=== PATIENT | female | born 1970 | race Caucasian/White ===

== ENCOUNTER 2016-07-12 08:59 | Emergency (ER) | payer SELFPAY ==
[2016-07-12] MEDS ORDERED: Albuterol/Ipratropium NEB.SOL* Albuterol 2.5 MG/Ipratropium 0.5 MG 3 ML INH ONE (09:54)
[2016-07-12 13:04] VITALS: BP 116/70
--- NOTE | 2016-07-12 14:08 | ED ---
Mk Hay Karl, scribed for Sudeep Sotelo MD on 07/12/16 at 0949 . Asthma - HPI Summary HPI Summary: Pt is a 45 y/o female that presents to the ED c/o weakness and feeling "beat up " after her asthma has been causing her to cough for the past week. Pt stated " I just can't stop coughing" and reported that she has been coughing for the past week with no relief from her inhaler and little relief from a nebulizer treatment. Pt stated that she is having difficulty sleeping because of the cough and reported that she feels weak and "beat up from so much coughing." Pt denied fever. Hx: Asthma. - History of Current Complaint Chief Complaint: EDAsthma Stated Complaint: ASTHMA/DIFF BREATHING Time Seen by Provider: 07/12/16 09:44 Hx Obtained From: Patient Hx Last Menstrual Period: 2 weeks ago Onset/Duration: Gradual Onset, Lasting Days, Still Present Timing: Constant Initial Severity: Moderate Current Severity: Moderate Pain Intensity: 5 - body pain Pain Scale Used: 0-10 Numeric Location/Character: Cough (Nonproductive) Aggravating Symptoms: Nothing Alleviating Symptoms: Nothing - Allergy/Home Medications Allergies/Adverse Reactions: Allergies Allergy/AdvReac Type Severity Reaction Status Date / Time Peanut Oil Allergy Hives/Diff. Verified 07/12/16 09:03 Breathing/I tching PMH/Surg Hx/FS Hx/Imm Hx Endocrine/Hematology History: Denies: Hx Diabetes, Hx Thyroid Disease Cardiovascular History: Denies: Hx Hypertension Respiratory History: Reports: Hx Asthma Denies: Hx Chronic Obstructive Pulmonary Disease (COPD) GI History: Denies: Hx Ulcer - Cancer History Hx Chemotherapy: No Hx Radiation Therapy: No Infectious Disease History: No Infectious Disease History: Denies: Hx Hepatitis, Hx Human Immunodeficiency Virus (HIV), Traveled Outside the [place] in Last 30 Days - Family History Known Family History: Positive: Cardiac Disease - father - [place] , Respiratory Disease, Other - [place] - Social History Alcohol Use: Rare Substance Use Type: Reports: None Smoking Status (MU): Never Smoked Tobacco Review of Systems Negative: Fever Eyes: Negative ENT: Negative Cardiovascular: Negative Positive: Cough Gastrointestinal: Negative Genitourinary: Negative Positive: Myalgia Skin: Negative Positive: Weakness Psychological: Normal All Other Systems Reviewed And Are Negative: Yes Physical Exam Triage Information Reviewed: Yes Vital Signs On Initial Exam: Initial Vitals Temp Pulse Resp BP Pulse Ox 97.4 F 78 16 121/57 99 07/12/16 09:03 07/12/16 09:03 07/12/16 09:03 07/12/16 09:03 07/12/16 09:03 Vital Signs Reviewed: Yes Appearance: Positive: Well-Appearing, No Pain Distress Skin: Positive: Warm, Skin Color Reflects Adequate Perfusion, Dry Head/Face: Positive: Normal Head/Face Inspection Eyes: Positive: Normal ENT: Positive: Normal ENT inspection Neck: Positive: Supple, Nontender Respiratory/Lung Sounds: Positive: Clear to Auscultation, Breath Sounds Present Cardiovascular: Positive: RRR Abdomen Description: Positive: Nontender, Soft Bowel Sounds: Positive: Present Musculoskeletal: Positive: Normal Neurological: Positive: Normal Psychiatric: Positive: Normal, Affect/Mood Appropriate Diagnostics - Vital Signs Vital Signs Temp Pulse Resp BP Pulse Ox 07/12/16 09:35 82 108/38 98 07/12/16 09:34 97.4 F 78 16 121/57 99 07/12/16 09:03 97.4 F 78 16 121/57 99 - Laboratory Lab Statement: Any lab studies that have been ordered have been reviewed, and results considered in the medical decision making process. Asthma Course/Dx - Course Course Of Treatment: Ya Cornejo presented C/O paroxysmal coughing. She has asthma and has been using her inhaler. She tried a neighbors nebulizer which helped (she has her own but no meds). She improved wome here with a neb and there is no sign of superinfection. I will treat her symptomatically. - Diagnoses Provider Diagnoses: Asthma exacerbation Discharge - Discharge Plan Condition: Stable Disposition: HOME Prescriptions: Albuterol 0.5% CONC NEB.ZAIDA* 1 mg .SEE ORDER Q4HR PRN #1 neb.soln PRN Reason: Cough guaiFENesin/CODIEN 100MG-10MG* [Robitussin AC 100Mg-10Mg*] 5 ml PO Q4H PRN #100 udc MDD 20 PRN Reason: Cough Patient Education Materials: Bronchospasm (ED), How to Use a Nebulizer (ED), Moderate and Severe Persistent Asthma (ED) Referrals: No Primary Care Phys,NOPCP [Primary Care Provider] - Additional Instructions: Please follow up with your primary care provider. Return to the emergency room for changing or worsening symptoms. The documentation as recorded by the Mk garcia Karl accurately reflects the service I personally performed and the decisions made by me, Sudeep Sotelo MD.
== END 2016-07-12 13:02 | disposition home or self-care (01) ==
LOC: ED 08:59
DX: J45.901 Unspecified asthma with (acute) exacerbation (principal)
CPT/HCPCS: 94640; 99283; A9270-GY

== ENCOUNTER 2018-08-13 16:37 | Emergency (ER) | payer BC, OTHER ==
[2018-08-13 16:50] VITALS: BP 129/72
--- NOTE | 2018-08-13 17:08 | UC ---
Skin Complaint HPI - HPI Summary HPI Summary: 47-year-old woman comes in with a chief complaint of rash. Rash started on her right forearm after wearing a tennis elbow brace several days ago. It's itchy red raised. He's tried some Benadryl which does help with the itching. Now she does have more generalized itching and some rash in the left forearm also. No difficulty breathing no shortness of breath. Patient also reports an intermittent rash underneath her nose that spreads along the creases of her cheeks. He gets better and worse. She's tried several treatments and she's having a hard time deciding what makes it better or worse. - History of Current Complaint Chief Complaint: UCSkin Time Seen by Provider: 08/13/18 16:38 Stated Complaint: RASH Hx Last Menstrual Period: 2 weeks ago Pain Intensity: 0 - Allergy/Home Medications Allergies/Adverse Reactions: Allergies Allergy/AdvReac Type Severity Reaction Status Date / Time latex Allergy Rash Verified 08/13/18 16:44 MS Peanut Oil [Peanut Oil] Allergy Hives/Diff. Verified 07/12/16 09:03 Breathing/I tching omeprazole [From Prilosec] Allergy Swelling Verified 08/13/18 16:48 peanut Allergy Hives/Diff. Verified 08/13/18 16:44 Breathing/I tching PMH/Surg Hx/FS Hx/Imm Hx Previously Healthy: Yes Respiratory History: Asthma - Surgical History Surgical History: None - Family History Known Family History: Positive: Cardiac Disease - father - [place] , Respiratory Disease, Other - [place] - Social History Alcohol Use: Occasionally Substance Use Type: None Smoking Status (MU): Never Smoked Tobacco Review of Systems All Other Systems Reviewed And Are Negative: Yes Constitutional: Positive: Negative Skin: Positive: Rash Eyes: Positive: Negative ENT: Positive: Negative Respiratory: Positive: Negative Cardiovascular: Positive: Negative Gastrointestinal: Positive: Negative Motor: Positive: Negative Neurovascular: Positive: Negative Musculoskeletal: Positive: Negative Neurological: Positive: Negative Psychological: Positive: Negative Is Patient Immunocompromised?: No Physical Exam Triage Information Reviewed: Yes Appearance: Well-Appearing, No Pain Distress, Well-Nourished Vital Signs: Initial Vital Signs Temp 98.1 F 08/13/18 16:45 Pulse 81 08/13/18 16:45 Resp 18 08/13/18 16:45 BP 129/72 08/13/18 16:45 Pulse Ox 99 08/13/18 16:45 Vital Signs Reviewed: Yes Eye Exam: Normal Eyes: Positive: Conjunctiva Clear ENT: Positive: Pharynx normal. Negative: Nasal drainage Neck exam: Normal Neck: Positive: Supple Respiratory: Positive: Lungs clear, Normal breath sounds, No respiratory distress Cardiovascular: Positive: RRR Musculoskeletal Exam: Normal Musculoskeletal: Positive: Strength Intact, ROM Intact Neurological Exam: Normal Neurological: Positive: Alert, Muscle Tone Normal Psychological Exam: Normal Psychological: Positive: Age Appropriate Behavior Skin: Positive: Rashes - Under the nose there are TWO 1 cm areas of slightly scaling erythematous rash. The right forearm there is scattered diffuse erythema with raised areas that show evidence of scratching. There is a few more patches of the same rash on the left forearm. Course/Dx - Course Course Of Treatment: The rash under the nose the rash under the nose based on location is most likely either impetigo or seborrheic dermatitis. We discussed treatment with cleaning the area with a dandruff shampoo during regular showering. Also prescribed mupirocin to be used to see if it's helpful. I let her know to not use any steroids on her face. The rash on the forearms appears to be a contact dermatitis. Patient reports she has hyperreactive response to steroids orally. Plan is A log 0.1% topically. If that does not help I did prescribe a Medrol Dosepak at the patient can use if needed. Otherwise follow- up with dermatology. - Diagnoses Provider Diagnosis: Rash Discharge - Sign-Out/Discharge Documenting (check all that apply): Patient Departure All imaging exams completed and their final reports reviewed: No Studies - Discharge Plan Condition: Stable Disposition: HOME Prescriptions: methylPREDNISolone [Medrol Dosepak 4 MG*] 0 mg PO .SEE JOYCE INSTRUCTION #1 joyce Mupirocin 1 applic TOPICAL BID #22 gm Triamcinolone 0.1% CREAM (NF) [Kenalog 0.1% Cream (NF)] 1 applic TOPICAL TID # 30 gm Patient Education Materials: Impetigo (ED), Contact Dermatitis (ED), Seborrheic Dermatitis (DC) Referrals: Jasson Whatley MD [Medical Doctor] - Melinda Galarza NP [Primary Care Provider] - Emma Ellis [Medical Doctor] - Additional Instructions: FOLLOW UP WITH DERMATOLOGY IF NOT COMPLETELY IMPROVED. GET RECHECKED FOR ANY WORSENING OF YOUR CONDITION OR QUESTIONS OR CONCERNS. - Billing Disposition and Condition Condition: STABLE Disposition: Home
== END 2018-08-13 17:15 | disposition home or self-care (01) ==
LOC: UCEAST 16:37
DX: R21 Rash and other nonspecific skin eruption (principal); J45.909 Unspecified asthma, uncomplicated; Z91.040 Latex allergy status; Z91.010 Allergy to peanuts; Z88.8 Allergy status to other drugs, medicaments and biological substances
CPT/HCPCS: 99212; G0463

== ENCOUNTER 2018-08-24 09:28 | Emergency (ER) | payer SELFPAY ==
--- NOTE | 2018-08-24 09:39 | UC ---
Skin Complaint HPI - HPI Summary HPI Summary: Patient Chief Complaint: rash, continuing, spreading. Now on belt line front and back; around both elbows; and in both groin areas. Intensely pruritic. Course (aggravating, relieving, current condition, severity): itching improved on Medrol dosepak, but patient stopped medication because she was concerned about taking steroid. MD note: vital signs stable. Vital signs beyond normal range reviewed. Nurses Note Reviewed. "Pt states was here 1.5 weeks ago for the same rash. States got new bands for tennis elbow - has dealt with issue before, but not as bad. Was given a course of methylprednisone and kenlog cream, has just gotten progressively worse, and now in other parts of body. " Visit History Reviewed. Medications & Allergies Reviewed. Previous note by Dr. Vasquez from August 13 2018: Course Of Treatment: The rash under the nose the rash under the nose based on location is most likely either impetigo or seborrheic dermatitis. We discussed treatment with cleaning the area with a dandruff shampoo during regular showering. Also prescribed mupirocin to be used to see if it's helpful. I let her know to not use any steroids on her face. The rash on the forearms appears to be a contact dermatitis. Patient reports she has hyperreactive response to steroids orally. Plan is A log 0.1% topically. If that does not help I did prescribe a Medrol Dosepak at the patient can use if needed. Otherwise follow- up with dermatology. - History of Current Complaint Time Seen by Provider: 08/24/18 09:33 Stated Complaint: RASH Hx Last Menstrual Period: 2 weeks ago - Allergy/Home Medications Allergies/Adverse Reactions: Allergies Allergy/AdvReac Type Severity Reaction Status Date / Time latex Allergy Rash Verified 08/13/18 16:44 omeprazole [From Prilosec] Allergy Swelling Verified 08/13/18 16:48 peanut Allergy Hives/Diff. Verified 08/13/18 16:44 Breathing/I tching peanut oil Allergy Hives/Diff. Verified 08/24/18 09:38 Breathing/I tching Home Medications: Home Medications Mupirocin 1 applic TOPICAL BID PRN 08/24/18 [History Confirmed 08/24/18] diphenhydrAMINE HCl [Benadryl Allergy 25 MG CAP] 25 mg PO ONCE 08/24/18 [ History Confirmed 08/24/18] PMH/Surg Hx/FS Hx/Imm Hx - Additional Past Medical History Additional PMH: PMH reviewed. Asthma. Antopy. Family History: Positive history of: allergies. -CARDIOVASCULAR DISEASE -Denies hypertension, diabetes, cancer. 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 Negative: Sore Throat Respiratory: Positive: Negative. Negative: Cough Cardiovascular: Positive: Negative Gastrointestinal: Positive: Negative Genitourinary: Positive: Negative Is Patient Immunocompromised?: No - Comments Additional Review of Systems Comments: A 12 point review of systems was completed and was significantly positive for: rash . The remainder of the review was negative except as stated above in the ROS or HPI. Physical Exam - Summary Physical Exam Summary: Appearance: The patient is well-appearing, is in no pain or distress, and is well-nourished. Eyes: Conjunctiva are clear. Pupils are equal and reactive to light and accommodation. Extra ocular muscle movement is intact. ENT: The hearing is grossly normal, the pharynx is normal, and the TMs are normal. There is no muffled or hoarse voice. No stridor. Neck: The neck is supple and there is no lymphadenopathy. Respiratory: The chest is nontender to palpation and without crepitus. The lungs are clear, there are normal breath sounds, and there is no respiratory distress. No wheezes, rales or rhonchi. Cardiovascular: Heart sounds reveal a regular rate and rhythm. There are no clicks, rubs or murmurs. There are no carotid bruits or thrills. Circulation is grossly intact. Abdomen: The abdomen is soft and nontender. There is no organomegaly. Bowel sounds are present and within normal limits. No point tenderness at McBurneys point. Musculoskeletal: Strength is intact. The patient moves all extremities. Neurological: The patient is alert. Motor and sensory are examination grossly intact. Speech is normal. Psychological: The patient displays age appropriate behavior Skin: ELBOWS: Macular papular excoriated rash scattered around both elbows, right elbow, worse than left. There is also a rash along the belt line on the anterior abdomen and in both lumbar areas. There is a rash in the groin. It appears that this rash may be of 2 types. Hives as well as contact dermatitis. It is clearly pruritic because there are various places where it's excoriated. There is no evidence of skin infection.. Triage Information Reviewed: Yes Vital Signs Reviewed: Yes Course/Dx - Course Course Of Treatment: MEDICATIONS REVIEWED: Medications have been included in the original chart and reviewed. HYPERTENSION STATUS REVIEWED. - Differential Diagnoses - Skin Complaint Differential Diagnoses: Contact Dermatitis, Urticaria - Diagnoses Provider Diagnosis: Contact dermatitis Discharge - Sign-Out/Discharge Documenting (check all that apply): Patient Departure All imaging exams completed and their final reports reviewed: No Studies - Discharge Plan Condition: Stable Disposition: HOME Prescriptions: predniSONE [Prednisone 5 MG Tab.Ds.Pk] 5 mg PO SEE INSTRUCTIONS #20 marissa MDD 3 PILLS Patient Education Materials: Urticaria (ED), Contact Dermatitis (DC) Referrals: Melinda Galarza HEALTH CARE SANITARY TECHNICIAN [Primary Care Provider] - Additional Instructions: WE DISCUSSED: PLEASE SEEK CARE AT THE EMERGENCY DEPARTMENT IF SYMPTOMS WORSEN OR IF NEW SYMPTOMS DEVELOP. FOLLOW UP WITH YOUR PRIMARY CARE PHYSICIAN IF CONDITION CONTINUES BEYOND 3 DAYS WITHOUT IMPROVEMENT. We are open from 7 a.m. to 10 p.m. Call us with any questions or concerns. YOUR DIAGNOSIS IS: rash: contact dermatitis and hives YOUR PRESCRIPTION RECOMMENDATION IS: prednisone 5 mg pills, # 20 pills; 3 pills a day for 3 days, then 2 pills a day for 2 days, then one pill a day for 5 days, then one pill every other day until gone. OTHER INSTRUCTIONS: Aveeno baths; hydrocortisone 1%; calomine; keep skin protected; look for infection. Hypertension Discharge Instructions: Your blood pressure reading today was 122/60, indicating HYPERTENSION. Follow- up with your primary care provider within 4 weeks for blood pressure check and appropriate recommendations and treatment, as needed. - Billing Disposition and Condition Condition: STABLE Disposition: Home
[2018-08-24 09:47] VITALS: BP 122/60
== END 2018-08-24 10:40 | disposition home or self-care (01) ==
LOC: UCEAST 09:28
DX: L25.9 Unspecified contact dermatitis, unspecified cause (principal); Z88.8 Allergy status to other drugs, medicaments and biological substances; Z91.040 Latex allergy status; Z91.010 Allergy to peanuts
CPT/HCPCS: 99212; G0463

== ENCOUNTER 2018-10-22 18:41 | Emergency (ER) | payer SELFPAY ==
--- NOTE | 2018-10-22 19:11 | UC ---
FLU HPI - HPI Summary HPI Summary: 48 yo female presents with cough, wheezing, chest congestion, and fatigue over the last week. She tells me that she has a history of asthma, but has also had PNA in the past and this feels similar. She has been using her inhaler more frequently at home, but states it only helps for a little bit. She is out of her albuterol solutions for her nebulizer and is requesting a refill for these. She has felt chills/warm, but has not taken her temperature. Denies sinus symptoms, sore throat, SOB, chest pain. - History of Current Complaint Chief Complaint: UCRespiratory Stated Complaint: FLU SYMPTOMS Time Seen by Provider: 10/22/18 19:11 Hx Obtained From: Patient Hx Last Menstrual Period: 2 weeks ago Onset/Duration: Gradual Onset Severity Currently: Moderate Severity Initially: Moderate Pain Intensity: 6 Pain Scale Used: 0-10 Numeric - Allergy/Home Medications Allergies/Adverse Reactions: Allergies Allergy/AdvReac Type Severity Reaction Status Date / Time latex Allergy Rash Verified 10/22/18 18:52 omeprazole [From Prilosec] Allergy Swelling Verified 10/22/18 18:52 peanut Allergy Hives/Diff. Verified 10/22/18 18:52 Breathing/I tching peanut oil Allergy Hives/Diff. Verified 10/22/18 18:52 Breathing/I tching Home Medications: Home Medications Acetaminophen [APAP] 650 mg PO 10/22/18 [History] PMH/Surg Hx/FS Hx/Imm Hx Respiratory History: Asthma - Surgical History Surgical History: None - Family History Known Family History: Positive: Cardiac Disease - father - [place] , Respiratory Disease, Other - [place] - Social History Lives: With Family Alcohol Use: Occasionally Substance Use Type: None Smoking Status (MU): Never Smoked Tobacco Review of Systems All Other Systems Reviewed And Are Negative: Yes Constitutional: Positive: Fatigue Skin: Positive: Negative Eyes: Positive: Negative ENT: Positive: Negative Respiratory: Positive: Cough Cardiovascular: Positive: Negative Gastrointestinal: Positive: Negative Neurological: Positive: Negative Psychological: Positive: Negative Physical Exam - Summary Physical Exam Summary: GENERAL: NAD. WDWN. No pain distress. SKIN: No rashes, sores, lesions, or open wounds. HEENT: Head: AT/NC Eyes: Conjunctiva clear without inflammation or discharge. Ears: Hearing grossly normal. TMs intact, no bulging, erythema, or edema. Nose: Nasal mucosa pink and moist. NTTP maxillary and frontal sinus. Throat: Posterior oropharynx without exudates, erythema, or tonsillar enlargement. Uvula midline. NECK: Supple. Nontender. No lymphadenopathy. CHEST: Mild wheezing throughout with coarse crackles at RLL. No accessory muscle use. Breathing comfortably and in no distress. CV: RRR. Without m/r/g. Pulses intact. Cap refill <2seconds NEURO: Alert. PSYCH: Age appropriate behavior. Triage Information Reviewed: Yes Vital Signs: Initial Vital Signs Temp 98.1 F 10/22/18 18:48 Pulse 88 10/22/18 18:48 Resp 18 10/22/18 18:48 BP 122/56 10/22/18 18:48 Pulse Ox 99 10/22/18 18:48 Laboratory Tests 10/22/18 19:10 Influenza A (Rapid) Negative Influenza B (Rapid) Negative Vital Signs Reviewed: Yes Flu Course/Dx - Course Course Of Treatment: Discussed obtaining a CXR and doing a duoneb treatment in the clinic this evening, but pt states she does not have insurance and would prefer to just be treated at this time. Therefore will rx for zpak and refill her albuterol solutions. Strongly encouraged to be rechecked if she does not improve with anbx and will likely benefit from a CXR at that time - pt voiced understanding and agrees with the plan. - Differential Dx/Diagnosis Provider Diagnosis: Cough, Asthma Discharge - Sign-Out/Discharge Documenting (check all that apply): Patient Departure All imaging exams completed and their final reports reviewed: No Studies - Discharge Plan Condition: Stable Disposition: HOME Prescriptions: Albuterol 2.5MG/3ML (0.083%)* [Ventolin 2.5 MG/3 ML NEB.ZAIDA*] 2.5 mg INH Q6H PRN #30 neb.zaida PRN Reason: Wheezing Azithromycin TAB* [Zithromax TAB (Z-JOYCE) 250 mg #6 tabs] 2 tab PO .TODAY, THEN 1 DAILY #1 joyce Patient Education Materials: Acute Bronchitis (ED), Pneumonia (ED) Referrals: Melinda Galarza BEAN SNIPPER [Primary Care Provider] - Additional Instructions: If you develop a fever, shortness of breath, chest pain, new or worsening symptoms - please call your PCP or go to the ED immediately. Your exam had some crackle sounds in your right lung which could indicate pneumonia. We discussed obtaining a chest x-ray today, but decided to wait. Given your history and symptoms will treat you for pneumonia. Please follow up if your symptoms do not improve within 5-7 days. - Billing Disposition and Condition Condition: STABLE Disposition: Home
[2018-10-22 19:22] LABS: Influenza A Molecular NEGATIVE (Negative); Influenza B Molecular NEGATIVE (Negative)
[2018-10-23 09:01] VITALS: BP 122/56
== END 2018-10-22 19:40 | disposition home or self-care (01) ==
LOC: UCEAST 18:41
DX: R05 Cough (principal); J45.909 Unspecified asthma, uncomplicated; R53.83 Other fatigue; Z88.8 Allergy status to other drugs, medicaments and biological substances; Z91.040 Latex allergy status; Z91.010 Allergy to peanuts
CPT/HCPCS: 99212; G0463

== ENCOUNTER 2018-10-24 12:18 | Emergency (ER) | payer SELFPAY ==
--- NOTE | 2018-10-24 12:28 | UC ---
Throat Pain/Nasal Jarvis HPI - HPI Summary HPI Summary: 48 yo female presents with right ear pain and headache. I saw her 2 days ago for a resp complaint - she is feeling better regarding this, but last night developed severe right ear pain. She has a hx of headaches so this is not new, but thinks her ear may be making her headache worse. She denies fever, chills, sore throat. - History of Current Complaint Stated Complaint: HEADACHE, EAR PAIN Time Seen by Provider: 10/24/18 12:27 Hx Obtained From: Patient Hx Last Menstrual Period: 2 weeks ago Onset/Duration: Sudden Onset Severity: Mild Pain Intensity: 3 Pain Scale Used: 0-10 Numeric - Allergies/Home Medications Allergies/Adverse Reactions: Allergies Allergy/AdvReac Type Severity Reaction Status Date / Time latex Allergy Rash Verified 10/24/18 12:32 omeprazole [From Prilosec] Allergy Swelling Verified 10/24/18 12:32 peanut Allergy Hives/Diff. Verified 10/24/18 12:32 Breathing/I tching peanut oil Allergy Hives/Diff. Verified 10/24/18 12:32 Breathing/I tching PMH/Surg Hx/FS Hx/Imm Hx Respiratory History: Asthma - Surgical History Surgical History: None - Family History Known Family History: Positive: Cardiac Disease - father - [place] , Respiratory Disease, Other - [place] - Social History Lives: With Family Alcohol Use: Occasionally Substance Use Type: None Smoking Status (MU): Never Smoked Tobacco Review of Systems All Other Systems Reviewed And Are Negative: Yes Constitutional: Positive: Negative Skin: Positive: Negative Eyes: Positive: Negative ENT: Positive: Ear Ache Respiratory: Positive: Cough Cardiovascular: Positive: Negative Gastrointestinal: Positive: Negative Neurological: Positive: Headache Psychological: Positive: Negative Physical Exam - Summary Physical Exam Summary: GENERAL: NAD. WDWN. No pain distress. SKIN: No rashes, sores, lesions, or open wounds. HEENT: Head: AT/NC Eyes: EOM intact. Conjunctiva clear without inflammation or discharge. Ears: Hearing grossly normal. RIGHT TM with mild erythema and bulging. No canal edema or drainage. Nose: Nasal mucosa pink and moist. NTTP maxillary and frontal sinus. Throat: Posterior oropharynx without exudates, erythema, or tonsillar enlargement. Uvula midline. NECK: Supple. Nontender. No lymphadenopathy. CHEST: CTAB. No r/r/w. No accessory muscle use. Breathing comfortably and in no distress. CV: RRR. Without m/r/g. Pulses intact. Cap refill <2seconds NEURO: Alert. PSYCH: Age appropriate behavior. Triage Information Reviewed: Yes Vital Signs: Vital Signs: Temp Pulse Resp BP Pulse Ox 97.5 F 70 18 111/72 100 10/24/18 12:29 10/24/18 12:29 10/24/18 12:29 10/24/18 12:29 10/24/18 12:29 Vital Signs Reviewed: Yes Throat Pain/Nasal Course/Dx - Course Course Of Treatment: Right otitis media. Will have her stop zpak and start augmentin for otitis media bug coverage. Strongly advised to take a probiotic with the augmentin to reduce risk of c.diff/anbx diarrhea. 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 Does not recall ever being bitten by a tick. - Differential Dx/Diagnosis Provider Diagnosis: Otitis media Discharge - Sign-Out/Discharge Documenting (check all that apply): Patient Departure All imaging exams completed and their final reports reviewed: No Studies - Discharge Plan Condition: Stable Disposition: HOME Prescriptions: Amoxicillin/Clavulanate TAB* [Augmentin TAB 875*] 875 mg PO BID #14 tab Patient Education Materials: Ear Infection (ED) Referrals: No Primary Care Phys,NOPCP [Primary Care Provider] - Additional Instructions: If you develop a fever, shortness of breath, chest pain, new or worsening symptoms - please call your PCP or go to the ED immediately. Please stop taking the z-marissa and start taking the Augmentin. Please take a probiotic over the counter to reduce any loose stools or diarrhea you may have from the antibiotics. - Billing Disposition and Condition Condition: STABLE Disposition: Home
[2018-10-24 12:32] VITALS: BP 111/72
== END 2018-10-24 12:50 | disposition home or self-care (01) ==
LOC: UCEAST 12:18
DX: H66.91 Otitis media, unspecified, right ear (principal); R51 Headache; R05 Cough; J45.909 Unspecified asthma, uncomplicated; Z88.8 Allergy status to other drugs, medicaments and biological substances; Z91.040 Latex allergy status; Z91.010 Allergy to peanuts
CPT/HCPCS: 36415; 86618; 99212; G0463

== ENCOUNTER 2019-02-23 19:15 | Emergency (ER) | payer BC ==
[2019-02-23 19:29] VITALS: BP 104/47
--- NOTE | 2019-02-23 19:34 | UC ---
Abdominal Pain Female HPI - HPI Summary HPI Summary: 48 year old female presents with abdominal pain, vomiting. Patient denies bowel changes, yesterday had poor appetite. Woke this AM with abdominal pain, after eating oatmeal, had projectile vomiting x multiple episodes 9-10 times. Denies fever, + chills. no h/o abdominal surgeries, no PMH, no medications. Pain = severe. - History of Current Complaint Stated Complaint: VOMITING Time Seen by Provider: 02/23/19 19:27 Hx Obtained From: Patient, Family/Golf Caddie - sig other Hx Last Menstrual Period: 2 weeks ago ?: No Onset/Duration: Sudden Onset, Lasting Hours Timing: Constant Severity Initially: Moderate Severity Currently: Severe Pain Scale Used: 0-10 Numeric Location: Discrete At: RLQ Radiates: No Character: Cramping, Sharp Aggravating Factor(s): Nothing Alleviating Factor(s): Nothing Associated Signs and Symptoms: Positive: Decreased Appetite, Nausea, Vomiting. Negative: Diarrhea Allergies/Adverse Reactions: Allergies Allergy/AdvReac Type Severity Reaction Status Date / Time latex Allergy Rash Verified 02/23/19 19:29 omeprazole [From Prilosec] Allergy Swelling Verified 02/23/19 19:29 peanut Allergy Hives/Diff. Verified 02/23/19 19:29 Breathing/I tching peanut oil Allergy Hives/Diff. Verified 02/23/19 19:29 Breathing/I tching PMH/Surg Hx/FS Hx/Imm Hx Previously Healthy: Yes - denies PMH - Surgical History Surgical History: None - Family History Known Family History: Positive: Cardiac Disease - father - [place] , Respiratory Disease, Other - [place], Non-Contributory - Social History Alcohol Use: Occasionally Substance Use Type: None Smoking Status (MU): Never Smoked Tobacco Review of Systems All Other Systems Reviewed And Are Negative: Yes Constitutional: Positive: Chills, Fatigue Gastrointestinal: Positive: Abdominal Pain, Vomiting, Nausea. Negative: Diarrhea Musculoskeletal: Positive: Negative Neurological: Positive: Negative Is Patient Immunocompromised?: No Physical Exam Triage Information Reviewed: Yes Appearance: No Pain Distress, Well-Nourished, Ill-Appearing - moderate Vital Signs Reviewed: Yes Eyes: Positive: Conjunctiva Clear ENT: Positive: Hearing grossly normal Abdomen Description: Positive: No Organomegaly, Soft, Guarding - RLQ, McBurney' s Point Tenderness, Other: - + RLQ tenderness, +. Negative: CVA Tenderness (R) , CVA Tenderness (L), Hepatomegaly, Splenomegaly Musculoskeletal Exam: Normal Psychological Exam: Normal Skin Exam: Normal Abd Pain Female Course/Dx - Course Course Of Treatment: acute abdomen, possible appendicitis. Patient will drive with friend to ER, report called to [facility]. NPO. Discussed ambo, prefers private car - Differential Dx/Diagnosis Differential Diagnosis: Appendicitis, Gall Bladder Disease, Pancreatitis, Renal Colic, Urinary Tract Infection Provider Diagnosis: Acute abdominal pain Discharge ED - Sign-Out/Discharge Documenting (check all that apply): Patient Departure All imaging exams completed and their final reports reviewed: No Studies - Discharge Plan Condition: Guarded Disposition: HOME-RECOMMEND TO ED Patient Education Materials: Acute Abdominal Pain (ED) Referrals: No Primary Care Phys,NOPCP [Primary Care Provider] - Additional Instructions: - DUe to possiblity of appendicitis, you should go to ER immediately. - Billing Disposition and Condition Condition: GUARDED Disposition: Home-Recommend to ED
== END 2019-02-23 19:57 | disposition home health service (06) ==
LOC: UCEAST 19:15
DX: R10.9 Unspecified abdominal pain (principal); Z91.040 Latex allergy status
CPT/HCPCS: 99212; G0463

== ENCOUNTER 2019-02-23 20:17 | Observation (INO) | payer BC ==
[2019-02-23] MEDS ORDERED: NS 0.9% 1000 ML** 2,000 ML IV ONE (20:34)
[2019-02-23 21:03] LABS: ABS Basophils 0.1 10^3/ul (0-0.2); ABS Lymphocytes 1.1 10^3/ul (1.0-4.8); ABS Monocytes 0.5 10^3/ul (0-0.8); ABS Neutrophils 11.4 10^3/ul (1.5-7.7); Eosinophil % 0.2 %; Hematocrit 41 % (35-47); Hemoglobin 14.5 g/dL (12.0-16.0); Lymphocyte % 8.4 %; Mean Corpuscular HGB Conc 35 g/dL (31-36); Mean Corpuscular Hemoglobin 31 pg (27-31); Mean Corpuscular Volume 89 fL (80-97); Mean Platelet Volume 7.5 fL (7.4-10.4); Platelet Count 255 10^3/uL (150-450); Red Blood Count 4.63 10^6 /uL (3.70-4.87); Red Cell Distribution Width 13 % (10-15); White Blood Count 13.2 10^3/uL (3.5-10.8)
[2019-02-23 21:20] LABS: ALT 16 U/L (7-52); AST 20 U/L (13-39); Albumin 4.5 g/dL (3.2-5.2); Albumin/Globulin Ratio 1.8 (1-3); Alkaline Phosphatase 69 U/L (34-104); Anion Gap 7 mmol/L (2-11); BUN/Creatinine Ratio 18.8 (8-20); Blood Urea Nitrogen 15 mg/dL (6-24); C Reactive Protein 4.49 mg/L (<8.01); CO2 Carbon Dioxide 26 mmol/L (22-32); Chloride 101 mmol/L (101-111); EGFR African American 93.4 (>60); EGFR Non-African American 77.2 (>60); Globulin 2.5 g/dL (2-4); Glucose 111 mg/dL (70-100); Potassium 4.1 mmol/L (3.5-5.0); Sodium 134 mmol/L (135-145)
[2019-02-23 21:26] LABS: HCG Pregnancy < 0.60 mIU/mL
--- NOTE | 2019-02-23 21:40 | ED ---
Abdominal Pain/Female - HPI Summary HPI Summary: Patient is a 48 y/o F presenting to ED with complaints of abdominal pain since this morning, 02/23/19. Patient states that pain progressively worsened since onset. Pain was located at the right side of her abdomen but gradually migrated to her RLQ. Pain onset after eating oatmeal. Patient reports multiple episodes of vomiting throughout the day. Nausea and chills are endorsed, no fever reported. She notes Hx of asthma but denies other medical problems. No regular medications reported. She denies Hx of abdominal surgery. Patient is currently on her menstrual cycle. Patient was evaluated at [facility] and was advised to come to [facility] for evaluation of acute appendicitis. On triage, pain is rated 10/10. Home medications and allergies are reviewed. - History of Current Complaint Chief Complaint: EDAbdPain Stated Complaint: ABD PAIN PER PT Time Seen by Provider: 02/23/19 21:38 Hx Obtained From: Patient Hx Last Menstrual Period: 2 weeks ago Onset/Duration: Lasting Hours, Still Present Timing: Hours Severity Currently: Severe Pain Intensity: 10 Pain Scale Used: 0-10 Numeric Location: Discrete At: RLQ Aggravating Factor(s): Nothing Alleviating Factor(s): Nothing Associated Signs and Symptoms: Positive: Nausea, Vomiting, Other: - chills. Negative: Fever Allergies/Adverse Reactions: Allergies Allergy/AdvReac Type Severity Reaction Status Date / Time latex Allergy Rash Verified 02/23/19 19:29 omeprazole [From Prilosec] Allergy Swelling Verified 02/23/19 19:29 peanut Allergy Hives/Diff. Verified 02/23/19 19:29 Breathing/I tching peanut oil Allergy Hives/Diff. Verified 02/23/19 19:29 Breathing/I tching Home Medications: Home Medications NK [No Home Medications Reported] 02/24/19 [History Confirmed 02/24/19] PMH/Surg Hx/FS Hx/Imm Hx Endocrine/Hematology History: Denies: Hx Diabetes, Hx Thyroid Disease Cardiovascular History: Denies: Hx Hypertension Respiratory History: Reports: Hx Asthma Denies: Hx Chronic Obstructive Pulmonary Disease (COPD) GI History: Denies: Hx Ulcer - Cancer History Hx Chemotherapy: No Hx Radiation Therapy: No Infectious Disease History: No Infectious Disease History: Denies: Hx Hepatitis, Hx Human Immunodeficiency Virus (HIV), Traveled Outside the [place] in Last 30 Days - Family History Known Family History: Positive: Cardiac Disease - father - [place] , Respiratory Disease, Other - [place] - Social History Alcohol Use: Occasionally Substance Use Type: Reports: None Smoking Status (MU): Never Smoked Tobacco Review of Systems Positive: Chills. Negative: Fever Positive: Abdominal Pain, Vomiting, Nausea All Other Systems Reviewed And Are Negative: Yes Physical Exam - Summary Physical Exam Summary: Appearance: Well-appearing, Well-nourished, lying in bed Skin: Warm, dry, no obvious rash Eyes: sclera anicteric, no conjunctival pallor ENT: mucous membranes moist, pharynx appears normal Neck: Supple, nontender Respiratory: Clear to auscultation, no signs of respiratory distress Cardiovascular: Normal S1, S2. No murmurs. Normal distal pulses in tibial and radial bilaterally. Abdomen: Focal RLQ tenderness, positive McBurney's point tenderness, rebound and guarding noted as well. Soft, normal active bowel sounds present Musculoskeletal: Normal, Strength/ROM Intact Neurological: A&Ox3, awake and alert, mentation is normal, speech is fluent and appropriate Psychiatric: affect is normal, does not appear anxious or depressed Triage Information Reviewed: Yes Vital Signs On Initial Exam: Initial Vitals Temp Pulse Resp BP Pulse Ox 97.8 F 67 18 124/61 98 02/23/19 20:25 02/23/19 20:25 02/23/19 20:25 02/23/19 20:25 02/23/19 20:25 Vital Signs Reviewed: Yes Diagnostics - Vital Signs Vital Signs Temp Pulse Resp BP Pulse Ox 02/23/19 20:25 97.8 F 67 18 124/61 98 - Laboratory Lab Results: Lab Results 02/23/19 02/23/19 02/23/19 Range/Units 20:53 20:53 20:53 WBC 13.2 H (3.5-10.8) 10^3/uL RBC 4.63 (3.70-4.87) 10^6 /uL Hgb 14.5 (12.0-16.0) g/dL Hct 41 (35-47) % MCV 89 (80-97) fL MCH 31 (27-31) pg MCHC 35 (31-36) g/dL RDW 13 (10-15) % Plt Count 255 (150-450) 10^3/uL MPV 7.5 (7.4-10.4) fL Neut % (Auto) 86.5 % Lymph % (Auto) 8.4 % [place] % (Auto) 3.8 % Eos % (Auto) 0.2 % Baso % (Auto) 1.1 % Absolute Neuts (auto) 11.4 H (1.5-7.7) 10^3/ul Absolute Lymphs (auto) 1.1 (1.0-4.8) 10^3/ul Absolute Monos (auto) 0.5 (0-0.8) 10^3/ul Absolute Eos (auto) 0.0 (0-0.6) 10^3/ul Absolute Basos (auto) 0.1 (0-0.2) 10^3/ul Absolute Nucleated RBC 0.0 10^3/ul Nucleated RBC % 0.0 Sodium 134 L (135-145) mmol/L Potassium 4.1 (3.5-5.0) mmol/L Chloride 101 (101-111) mmol/L Carbon Dioxide 26 (22-32) mmol/L Anion Gap 7 (2-11) mmol/L BUN 15 (6-24) mg/dL Creatinine 0.80 (0.51-0.95) mg/dL Est GFR ( Amer) 93.4 (>60) Est GFR (Non-Af Amer) 77.2 (>60) BUN/Creatinine Ratio 18.8 (8-20) Glucose 111 H (70-100) mg/dL Lactic Acid 1.1 (0.5-2.0) mmol/L Calcium 9.0 (8.6-10.3) mg/dL Total Bilirubin 0.60 (0.2-1.0) mg/dL AST 20 (13-39) U/L ALT 16 (7-52) U/L Alkaline Phosphatase 69 (34-104) U/L C-Reactive Protein 4.49 (<8.01) mg/L Total Protein 7.0 (6.4-8.9) g/dL Albumin 4.5 (3.2-5.2) g/dL Globulin 2.5 (2-4) g/dL Albumin/Globulin Ratio 1.8 (1-3) Lipase 28 (11.0-82.0) U/L Beta HCG, Quant < 0.60 mIU/mL Result Diagrams: 02/23/19 20:53 02/23/19 20:53 Lab Statement: Any lab studies that have been ordered have been reviewed, and results considered in the medical decision making process. - CT CT ABD/PEL CT Interpretation Completed By: Radiologist Summary of CT Findings: IMPRESSION: 1. Dilated appendix with mild thickening of the wall of the appendix raises the. possibility of acute appendicitis. Clinical correlation is advised. 2. Bilateral spondylolysis of L5. 3. Left adnexal cyst. THIS REPORT WAS REVIEWED BY DR. ISBELL. Re-Evaluation - Re-Evaluation First Eval Re-Evaluation Time: 23:23 Change: Improved Comment: She reports improvement in pain after Toradol. Abdominal Pain Fem Course/Dx - Course Course Of Treatment: Patient is a 48 y/o F presenting to ED with complaints of abdominal pain since this morning, 02/23/19. Patient states that pain progressively worsened since onset. Pain was located at the right side of her abdomen but gradually migrated to her RLQ. Pain onset after eating oatmeal. Patient reports multiple episodes of vomiting throughout the day. Nausea and chills are endorsed, no fever reported. She notes Hx of asthma but denies other medical problems. No regular medications reported. She denies Hx of abdominal surgery. On physical exam, patient had focal RLQ tenderness, positive McBurney' s point tenderness, rebound and guarding noted as well. Bloodwork was obtained. Abnormal values include WBC 13.2, absolute neuts 11.4, sodium 134, glucose 111. UA showed 1+ ketones, 2+ blood, 1+ RBC ,and squamous epith cells. During ED course, patient received fluids, Zofran 8 mg IV, Toradol 10 mg IV, and morphine 4 mg IV. 0022 - Patient's CT ABD/PEL was reviewed with Dr. Cifuentes. CT is still pending official report. 0114 - [facility] called with CT ABD/PEL impression. IMPRESSION: 1. Dilated appendix with mild thickening of the wall of the appendix raises the. possibility of acute appendicitis. Clinical correlation is advised. 2. Bilateral spondylolysis of L5. 3. Left adnexal cyst. 0126 - Discussed patient's case with Dr. Cifuentes. Dr. Cifuentes will admit the patient to his services. - Diagnoses Provider Diagnoses: Acute abdominal pain - Provider Notifications Discussed Care Of Patient With: Jayant Mecenas Time Discussed With Above Provider: 00:22 Instructed by Provider To: Other - 0022 - Patient's CT ABD/PEL was reviewed with Dr. Cifuentes. CT is still pending official report. 0114 - [facility] called with CT ABD/PEL impression. 0126 - Discussed patient's case with Dr. Cifuentes. Dr. Cifuentes will admit the patient to his services. Discharge ED - Sign-Out/Discharge Documenting (check all that apply): Patient Departure - admit All imaging exams completed and their final reports reviewed: Yes Patient Received Moderate/Deep Sedation with Procedure: No - Discharge Plan Condition: Fair Disposition: ADMITTED TO [facility] - Billing Disposition and Condition Condition: FAIR Disposition: Admitted to [facility] - Attestation Statements Document Initiated by Nemesio: Yes Documenting Scribe: YAKOV HARVEY Provider For Whom Nemesio is Documenting (Include Credential): VAISHALI ISBELL MD Scrib[place]andon Attestation: YAKOV Hay, scribed for VAISHALI ISBELL MD on 02/24/19 at 0637. Scribe Documentation Reviewed: Yes Provider Attestation: The documentation as recorded by the YAKOV garcia accurately reflects the service I personally performed and the decisions made by me, VAISHALI ISBELL MD Status of Scribe Document: Viewed
[2019-02-23] MEDS ORDERED: Morphine 4 MG/ML VIAL (1 ml) 4 MG/ML VIAL IV PRN (21:45)
[2019-02-23] MEDS ORDERED: Ketorolac INJ* 30 MG/ML 1 ML VIAL IV PUSH ONE (21:45)
[2019-02-23] MEDS ORDERED: Ondansetron INJ* 2 MG/ML VIAL IV ONE (21:45)
[2019-02-23] MEDS ORDERED: Iohexol 300* (CONTRAST) 10 ML SDV IV ONE (23:14)
[2019-02-23 23:46] LABS: Urine Appearance Clear; Urine Bacteria Absent (Absent); Urine Bilirubin Negative (Negative); Urine Blood 2+ (Negative); Urine Color Yellow; Urine Glucose Negative (Negative); Urine Ketones 1+ (Negative); Urine Nitrite Negative (Negative); Urine Protein Negative (Negative); Urine Red Blood Cell 1+(3-5/hpf) (Absent); Urine Specific Gravity 1.012 (1.010-1.030); Urine Squamous Epithelial Cell Present (Absent); Urine Urobilinogen Negative (Negative); Urine White Blood Cell Trace(0-5/hpf) (Absent)
[2019-02-24] MEDS ORDERED: Ondansetron INJ* 2 MG/ML VIAL IV PRN ×2 (01:30→16:12)
[2019-02-24] MEDS ORDERED: ZOSYN 3.375 GM x ONE DOSE over 30 miuntes IVPB ×2 (02:00)
[2019-02-24] MEDS: NS 0.9% 1000 ML** 1,000 ML IV SCH ×2 (02:18→11:19)
[2019-02-24] MEDS ORDERED: Zosyn per Pharmacy* NOTE FOLLOW UP PRN (02:36)
[2019-02-24] MEDS: Morphine 4 MG/ML VIAL (1 ml) 4 MG/ML VIAL IV PRN ×2 (05:43→10:07)
[2019-02-24] MEDS ORDERED: ZOSYN 3.375 GM Q8H per EXTENDED INFUSION IVPB SCH ×2 (06:00)
[2019-02-24 10:20] LABS: ABS Basophils 0.1 10^3/ul (0-0.2); ABS Eosinophils 0.1 10^3/ul (0-0.6); ABS Lymphocytes 1.2 10^3/ul (1.0-4.8); ABS Monocytes 0.6 10^3/ul (0-0.8); ABS Neutrophils 7.6 10^3/ul (1.5-7.7); Hematocrit 37 % (35-47); Hemoglobin 12.8 g/dL (12.0-16.0); Lymphocyte % 12.5 %; Mean Corpuscular HGB Conc 35 g/dL (31-36); Mean Corpuscular Hemoglobin 31 pg (27-31); Mean Corpuscular Volume 90 fL (80-97); Mean Platelet Volume 7.5 fL (7.4-10.4); Platelet Count 202 10^3/uL (150-450); Red Blood Count 4.09 10^6 /uL (3.70-4.87); Red Cell Distribution Width 13 % (10-15); White Blood Count 9.6 10^3/uL (3.5-10.8)
--- NOTE | 2019-02-24 11:08 | HP ---
CC: [facility] DATE OF ADMISSION: 02/25/2016. CHIEF COMPLAINT: Right lower quadrant abdominal pain. HISTORY OF PRESENT ILLNESS: Ms. Ya Cornejo is a healthy, 48-year-old woman who early Sunday morning awoke with fairly severe epigastric discomfort. This was followed by perfuse vomiting after she attempted to eat some breakfast. She had no fever, shakes, or chills and at that time had no diarrhea. Over the course of the next several hours, the pain migrated to the right lower quadrant. Epigastric discomfort resolved. She had no further nausea, but became anorexic. Once again, she had no diarrhea. She has no complaint of no left upper quadrant or left mid abdominal discomfort. She was seen in the urgent care center and then subsequently transferred to the emergency room. On arrival to the emergency room, she was noted to be afebrile with stable vital signs. She had tenderness in the right lower quadrant. Laboratory values included a white blood cell count of 13,000. Electrolytes, BUN and creatinine, as well as lactic acid, C-reactive protein, lipase and a beta HCG were all unremarkable. She underwent a CT scan of the abdomen and pelvis. I did review these images with our radiologists here today. This showed an appendix which was dilated. There was a mild thickening of the wall with a possible appendicolith. There also appeared to be some air in the appendix. There was no significant inflammation surrounding the appendix. Also noted were several areas in the proximal jejunum as well as in the ileum of some perhaps possible thickening of the wall of the intestine with no evidence of obstruction and this was not certain if this may have been possible enteritis versus simple peristalsis. She was admitted last evening and started on IV antibiotics for presumed appendicitis due to her clinical history and findings on physical exam. PAST MEDICAL HISTORY: Unremarkable. PAST SURGICAL HISTORY: Unremarkable. ALLERGIES: She is ALLERGIC TO LATEX, OMEPRAZOLE, PEANUT OIL, AND PEANUTS. She has no known drug allergies. SOCIAL HISTORY: She does not smoke or drink. She is single, but lives with a male partner. 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 REVIEW OF SYSTEMS: Cerebrovascular: No dizziness or visual disturbances. Cardiovascular: No chest pain or shortness of breath. Pulmonary: No wheezing or hemoptysis. GI: As per above. She has no chronic abdominal discomfort. : No urgency or hematuria. She is currently on her menstrual cycle and this not unremarkable for her. PHYSICAL EXAMINATION GENERAL: She is a well-developed, slightly overweight female with normal attention to grooming. She is awake, alert, and conversive in no apparent distress. VITAL SIGNS: Temperature 98, pulse 69, blood pressure 99/49. LUNGS: Clear to auscultation with normal respiratory effort throughout. HEART: Regular rate and rhythm without murmurs, rubs or gallops. ABDOMEN: Soft, nondistended. There are no prior surgical incisions or hernias. She has some slightly increased bowel sounds throughout that are not high pitched or tinkling. She has exquisite tenderness in the right lower quadrant with voluntary guarding. There is no generalized peritoneal irritation. On palpation of the left mid abdomen, the right lower quadrant pain is worsened. There is no left upper or epigastric abdominal discomfort. EXTREMITIES: Show no cyanosis or edema. PSYCHIATRIC: She is awake, alert, and oriented times three. She has normal judgement and insight. IMPRESSION: Right lower quadrant abdominal discomfort. Her symptoms started with severe epigastric discomfort with vomiting with migration of the pain to the right lower quadrant which has persisted. She states her pain is worse today than it was last night when she presented to the emergency room. She had a mild elevation of her white blood cell count. A CT scan with slightly thickened appendiceal wall, but no evidence of abscess, perforation or significant surrounding inflammation. Perhaps incidentally noted was some discrete areas of the small intestine with some thickened wall, but this may have been peristalsis versus possible enteritis. She has had no diarrhea. I had a long discussion with her regarding these findings as well as the laboratory work-up and the CT scan findings. Her pain is worsened today and it is exquisitely tender in the right lower quadrant and I suspect that this is acute appendicitis and I discussed this with her. With this in mind, I do recommend that we proceed with a laparoscopic appendectomy with evaluation of the small intestine as well. There is a possibility this may be a normal appendix, but I am concerned enough about appendicitis that I explained to her that we do not want to miss an appendicitis and have it progress to perforation and further illness, i.e. sepsis. She is understanding of our discussion and after our discussion she agrees with the plan and would like to proceed with surgery. It should be noted that I did discuss nonoperative management of appendicitis with antibiotics; however, not without a complete assured diagnosis of appendicitis, I would not want to treat with ten days to two weeks of antibiotics and observation. PLAN: 1. Laparoscopic appendectomy today. The procedure was discussed with the patient and the risks of, but not limited to bleeding, infection, intra- abdominal abscess formation, injury to peritoneal and retroperitoneal structures , the possibility of an open procedure, abscess, the risks of general anesthesia , hospital stay, and recovery time were also discussed. 2. She will be kept NPO and continued IV fluids. 3. She has been started on IV Zosyn and this will be continued. [id number]/CPS #: [id number] MTDD
[2019-02-24] MEDS ORDERED: Rocuronium* 10 MG/ML VIAL ONE (15:22)
[2019-02-24] MEDS ORDERED: Propofol* 10 MG/ML 20 ML BTL ONE (15:22)
[2019-02-24] MEDS ORDERED: fentaNYL* 50 MCG/ML 2 ML VIAL (100 MCG VIAL) ONE ×2 (15:22→18:32)
[2019-02-24] MEDS ORDERED: Midazolam* 1 MG/ML 5 ML VIAL (5 MG) ONE (15:22)
[2019-02-24] MEDS ORDERED: Bupivacaine 0.5%* 50 ML MDV VIAL ONE (15:24)
[2019-02-24] MEDS ORDERED: Dexamethasone IV* 4 MG/ML 1 ML (4 MG) ONE (15:52)
[2019-02-24] MEDS ORDERED: ceFOXitin(*) 2 GM in NS 0.9% 100 ML* 100 ML IVPB ONE (16:00)
[2019-02-24] MEDS ORDERED: Ondansetron INJ* 2 MG/ML VIAL ONE ×2 (16:08→20:19)
[2019-02-24] MEDS ORDERED: Ketorolac INJ* 30 MG/ML 1 ML VIAL ONE (16:08)
[2019-02-24] MEDS ORDERED: DiMENhydriNATE IV* 50 MG/ML VIAL IV PUSH PRN (16:12)
[2019-02-24] MEDS ORDERED: Naloxone* 0.4 MG/ML 1 ML VIAL IV PRN (16:12)
--- NOTE | 2019-02-24 16:22 | BRIEFOPN ---
Brief Operative/Procedure Note - Operation Details Pre-Op Diagnosis: acute appendicitis Post-Op Diagnosis: same Procedures: laparoscopic appendectomy Surgeon(s)/Proceduralists: Rodrigue. Assist: VICTOR M Kelsey Anesthesia: GET Estimated Blood Loss: < 10 ml Findings: as above Specimen(s)/Culture(s) Description: appendix Complications: none
[2019-02-24] MEDS ORDERED: Sugammadex * 200 MG/2 ML VIAL IV PUSH ONE (16:23)
[2019-02-24] MEDS ORDERED: HYDROmorphone INJ1* 1 MG/ML SYRINGE ONE (18:05)
[2019-02-24] MEDS ORDERED: oxyCODONE/Acetamin 5/325 MG* TAB ONE (18:05)
[2019-02-24] MEDS: HYDROmorphone INJ1* 1 MG/ML SYRINGE IV PRN ×5 (18:06→18:27)
[2019-02-24] MEDS: oxyCODONE/Acetamin 5/325 MG* TAB PO PRN ×2 (18:07→18:26)
[2019-02-24] MEDS: fentaNYL* 50 MCG/ML 2 ML VIAL (100 MCG VIAL) IV PRN ×2 (18:34→18:37)
[2019-02-24 20:59] VITALS: BP 114/63
--- NOTE | 2019-02-24 23:04 | OP ---
DATE OF OPERATION: 02/24/19 - ROOM #334 DATE OF : 74 SURGEON: Beau Husain MD FRONT END LOADER OPERATOR: VICTOR M Zhong PRE-OP DIAGNOSIS: Appendicitis. POST-OP DIAGNOSIS: Appendicitis. OPERATIVE PROCEDURE: Laparoscopic appendectomy. INDICATIONS: Appendicitis. Risks including, but not limited to, bleeding, infection, injury to bowel explained to the patient who seemed to understand, agreed to the procedure, and all questions were answered. DESCRIPTION OF PROCEDURE: The patient was taken to the operating room and placed supine. Preoperative antibiotics had been given. After successful induction of general endotracheal anesthesia, the abdomen was prepped and draped in sterile fashion. A time-out was performed indicating correct patient , correct procedure. A 5-mm trocar was placed in the left lower quadrant under direct visualization of the camera using a bladeless Optiview trocar. Pneumo- peritoneum was achieved to 15 mmHg. Camera was placed in the abdomen. The abdomen was scanned. There was no obvious injury from trocar placement. A 12- mm umbilical and 5-mm suprapubic trocars were placed. The patient was placed in a slight Trendelenburg position, tilted slightly towards ri. An obviously inflamed appendix was easily noted, gently mobilized, isolated at its base and divided with a stapler. The mesoappendix was divided using a staple load, both king loads, 45 mm. It was placed into an Endobag and removed through the umbilical port site. Right lower quadrant was inspected. There was no purulence. EBL was minimal. Hemostasis was intact. Staple lines were intact. No bleeding. The omentum was gently placed over the operative site. The patient was taken out of the Trendelenburg position. The trocars removed after pneumoperitoneum was released from the abdomen. The skin was closed at each site using Monocryl, glues applied to the skin. She tolerated the procedure well. She was extubated and taken to Recovery in stable condition. [id number]/[facility] #: [id number] [facility]
--- NOTE | 2019-04-10 12:36 | DS ---
DISCHARGE SUMMARY: DATE OF ADMISSION: 02/24/19 DATE OF DISCHARGE: 02/24/09 ADMITTING PHYSICIAN: Dr. Mishra. DISCHARGING PHYSICIAN: Dr. Husain. DISCHARGE DIAGNOSIS: Appendicitis. REASON FOR ADMISSION: Appendicitis. ASSESSMENT OF PATIENT CONDITION AT TIME OF DISCHARGE: Stable condition at the time of discharge. PERTINENT PHYSICAL FINDINGS: The patient was admitted with signs and symptoms consistent with appendicitis. At the time of discharge, her abdomen was soft and nontender. Incision was clean, dry, and intact. PERTINENT LABORATORY FINDINGS: Elevated white blood cell count of 13.2 on admission and normal white blood cell count of 9.6 on the day of discharge. PROCEDURE PERFORMED: Laparoscopic appendectomy. TREATMENT RENDERED: She was seen in the emergency room late in the evening of 02/23/19, placed on IV antibiotics, seen by Dr. Mishra and transferred to [facility] for surgical intervention on 02/24/19. She underwent laparoscopic appendectomy and was discharged postoperatively. CONDITION AND DISPOSITION AT DISCHARGE: Condition is stable. Disposition is good with plans for discharge to home. DISCHARGE INSTRUCTIONS: Normal activity as tolerated. Regular diet. Tylenol and Motrin for pain with plans for followup to see me in the office in 1 week. [id number]/CPS #: [id number] TONY
== END 2019-02-24 20:56 | disposition home or self-care (01) ==
LOC: ED 20:17 → SSU 02-24 01:34
PROVIDERS: ADMIT Surgery; ATTEND Surgery
DX: K37 Unspecified appendicitis (principal); R10.9 Unspecified abdominal pain; R11.2 Nausea with vomiting, unspecified; M47.9 Spondylosis, unspecified; N83.8 Other noninflammatory disorders of ovary, fallopian tube and broad ligament; J45.909 Unspecified asthma, uncomplicated
CPT/HCPCS: 36415; 74177; 80053; 81003; 81015; 83605; 83690; 84702; 85025; 86140; 87086; 88304; 96361; 96365; 96375; 99284; A9270-GY; G0378; J0694; J1100; J1170; J1885; J2250; J2270; J2405; J2543; J2704; J3010; J3490; Q9967

== ENCOUNTER 2019-03-09 19:48 | Emergency (ER) | payer BC ==
--- OUTSIDE RECORDS SUMMARY | 2019-03-09 19:58 | XMS REPORT | Continuity of Care Document ---
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 Medicine Problems Description No Information Available Social History Type Date Description Comments Sex Unknown Tobacco Use Start: Unknown Patient has never smoked Smoking Status Reviewed: 03/04/19 Patient has never smoked Allergies, Adverse Reactions, Alerts Active Allergies Reaction Severity Comments Date Latex 03/03/2019 Omeprazole 03/03/2019 Peanut Oil 03/03/2019 Peanut-containing Drug Products 03/03/2019 Inactive Allergies NKDA 03/03/2019 Medications Active Medications SIG Qnty Indications Ordering Provider Date Ibuprofen 200 400-600mg every 6 Unknown 200mg hours as needed Tablets for pain. History Medications No Active Medications Unknown 03/03/2019 - 03/04/2019 Immunizations Description No Information Available Vital Signs Date Vital Result Comment 03/04/2019 11:46am Heart Rate 72 /min BP Systolic 118 mmHg BP Diastolic 80 mmHg Respiratory Rate 16 /min Body Temperature 99.0 F Results Description No Information Available Procedures Date Code Description Status 02/24/2019 52630 Laparoscopy, Surgical, Appendectomy Completed 02/24/2019 07835 Laparoscopy, Surgical, Appendectomy Completed Medical Devices Description No Information Available Encounters Type Date Location Provider Dx Diagnosis Office Visit 02/24/2019 [facility] K35.80 Unspecified acute [facility] appendicitis Assessments Date Code Description Provider 02/24/2019 K35.30 Acute appendicitis with localized VICTOR M Fuller peritonitis, without perforation or gangrene 02/24/2019 K35.30 Acute appendicitis with localized Beau Husain MD peritonitis, without perforation or gangrene 02/24/2019 K35.80 Unspecified acute appendicitis Konrad Mishra MD Plan of Treatment No Information Available Functional Status Description No Information Available Mental Status Description No Information Available Referrals Description No Information Available
[2019-03-09 23:22] LABS: Urine Appearance Clear; Urine Bacteria Absent (Absent); Urine Bilirubin Negative (Negative); Urine Blood 3+ (Negative); Urine Color Yellow; Urine Glucose Negative (Negative); Urine Ketones Negative (Negative); Urine Nitrite Negative (Negative); Urine Protein Negative (Negative); Urine Red Blood Cell Trace(0-2/hpf) (Absent); Urine Squamous Epithelial Cell Present (Absent); Urine Urobilinogen Negative (Negative); Urine White Blood Cell Absent (Absent)
[2019-03-10 00:24] LABS: ABS Eosinophils 0.2 10^3/ul (0-0.6); ABS Lymphocytes 2.2 10^3/ul (1.0-4.8); ABS Monocytes 0.4 10^3/ul (0-0.8); ABS Neutrophils 3.7 10^3/ul (1.5-7.7); Eosinophil % 3.3 %; Hematocrit 36 % (35-47); Hemoglobin 12.5 g/dL (12.0-16.0); Lymphocyte % 33.5 %; Mean Corpuscular HGB Conc 35 g/dL (31-36); Mean Corpuscular Hemoglobin 31 pg (27-31); Mean Corpuscular Volume 91 fL (80-97); Mean Platelet Volume 7.3 fL (7.4-10.4); Platelet Count 267 10^3/uL (150-450); Red Blood Count 3.99 10^6 /uL (3.70-4.87); Red Cell Distribution Width 13 % (10-15); White Blood Count 6.6 10^3/uL (3.5-10.8)
[2019-03-10] MEDS ORDERED: NS 0.9% 1000 ML** 1,000 ML IV ONE (00:36)
[2019-03-10] MEDS ORDERED: Morphine 4 MG/ML VIAL (1 ml) 4 MG/ML VIAL IV ONE (00:36)
[2019-03-10] MEDS ORDERED: Ketorolac INJ* 30 MG/ML 1 ML VIAL IV PUSH ONE (00:36)
[2019-03-10 00:40] LABS: Albumin 4.2 g/dL (3.2-5.2); Albumin/Globulin Ratio 1.6 (1-3); C Reactive Protein 7.69 mg/L (<8.01); Calcium 9.3 mg/dL (8.6-10.3); EGFR African American 83.7 (>60); EGFR Non-African American 69.2 (>60); Globulin 2.6 g/dL (2-4); Potassium 3.8 mmol/L (3.5-5.0); Total Bilirubin 0.4 mg/dL (0.2-1.0); Total Protein 6.8 g/dL (6.4-8.9)
--- NOTE | 2019-03-10 00:41 | ED ---
Abdominal Pain/Female - HPI Summary HPI Summary: The patient is a 48 y/o F presenting to [facility] with a chief complaint of gradually worsening RLQ pain over the last week. She reports she had an appendectomy almost two weeks ago, and she didnt have any complications or pain for the first week after the surgery, but then she developed pain in the surgical area. She had a repeat CT 5 days ago that only showed inflammation of the area likely consistent with the surgery. Since then, she has had increased pain that hasnt been worse than prior to the surgery, a mild fever, chills, bloating that has resolved, and a decreased appetite. 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 Currently, her symptoms are rated 8/10 in severity. Movement aggravates the pain and rest alleviates it. PMHx: persistent ovarian cysts, asthma, headache, migraine. Nonsmoker, rare EtOH, no substance use. Medications reviewed. Allergies noted. - History of Current Complaint Chief Complaint: EDAbdPain Stated Complaint: ABD PAIN AFTER SURG PER PT Time Seen by Provider: 03/10/19 00:28 Hx Obtained From: Patient Hx Last Menstrual Period: 2 weeks ago Onset/Duration: Gradual Onset, Lasting Days - one week, Still Present Timing: Days Severity Initially: Mild Severity Currently: Severe Pain Intensity: 8 Pain Scale Used: 0-10 Numeric Location: Discrete At: RLQ Radiates: No Character: Sharp Aggravating Factor(s): Movement Alleviating Factor(s): Position - rest, lying down Associated Signs and Symptoms: Positive: Fever - mild, Decreased Appetite, Other : - chills, bloating (resolved) Allergies/Adverse Reactions: Allergies Allergy/AdvReac Type Severity Reaction Status Date / Time latex Allergy Rash Verified 03/09/19 19:51 omeprazole [From Prilosec] Allergy Swelling Verified 03/09/19 19:51 peanut Allergy Hives/Diff. Verified 03/09/19 19:51 Breathing/I tching peanut oil Allergy Hives/Diff. Verified 03/09/19 19:51 Breathing/I tching PMH/Surg Hx/FS Hx/Imm Hx Endocrine/Hematology History: Denies: Hx Diabetes, Hx Thyroid Disease Cardiovascular History: Denies: Hx Hypertension Respiratory History: Reports: Hx Asthma Denies: Hx Chronic Obstructive Pulmonary Disease (COPD) GI History: Denies: Hx Ulcer History: Denies: Hx Renal Disease Musculoskeletal History: Reports: Hx Back Problems - Small fracture in back, Other Musculoskeletal History - spondylothesis Sensory History: Reports: Hx Contacts or Glasses - reading glasses Denies: Hx Hearing Aid Opthamlomology History: Reports: Hx Contacts or Glasses - reading glasses Neurological History: Reports: Hx Headaches, Hx Migraine Psychiatric History: Reports: Hx Depression - Cancer History Hx Chemotherapy: No Hx Radiation Therapy: No - Surgical History Surgical History: Yes Surgery Procedure, Year, and Place: APPENDECTOMY Infectious Disease History: Yes Infectious Disease History: Denies: Hx Hepatitis, Hx Human Immunodeficiency Virus (HIV), Traveled Outside the [place] in Last 30 Days - Family History Known Family History: Positive: Cardiac Disease - father - MD , Respiratory Disease, Other - [place], Non-Contributory - Social History Alcohol Use: Rare Hx Substance Use: No Substance Use Type: Reports: None Hx Tobacco Use: No Smoking Status (MU): Never Smoked Tobacco Review of Systems Positive: Fever - mild, Chills Positive: Abdominal Pain - RLQ, Other - decreased appetite, bloating (resolved) All Other Systems Reviewed And Are Negative: Yes Physical Exam - Summary Physical Exam Summary: Appearance: Well-appearing, Well-nourished, lying in bed comfortably Skin: Warm, dry, no obvious rash Eyes: sclera anicteric, no conjunctival pallor ENT: mucous membranes moist, pharynx appears normal Neck: Supple, nontender Respiratory: Clear to auscultation, no signs of respiratory distress Cardiovascular: Normal S1, S2. No murmurs. Normal distal pulses in tibial and radial bilaterally. Abdomen: Soft, RLQ tenderness without peritoneal signs, normal active bowel sounds present Musculoskeletal: Normal, Strength/ROM Intact Neurological: A&Ox3, awake and alert, mentation is normal, speech is fluent and appropriate Psychiatric: affect is normal, does not appear anxious or depressed Triage Information Reviewed: Yes Vital Signs On Initial Exam: Initial Vitals Temp Pulse Resp BP Pulse Ox 98.8 F 102 20 139/84 98 03/09/19 19:49 03/09/19 19:49 03/09/19 19:49 03/09/19 19:49 03/09/19 19:49 Vital Signs Reviewed: Yes Diagnostics - Vital Signs Vital Signs Temp Pulse Resp BP Pulse Ox 03/09/19 23:23 98 F 65 16 115/72 97 03/09/19 19:49 98.8 F 102 20 139/84 98 - Laboratory Lab Results: Lab Results 03/09/19 03/09/19 Range/Units 22:39 23:51 WBC 6.6 (3.5-10.8) 10^3/uL RBC 3.99 (3.70-4.87) 10^6 /uL Hgb 12.5 (12.0-16.0) g/dL Hct 36 (35-47) % MCV 91 (80-97) fL MCH 31 (27-31) pg MCHC 35 (31-36) g/dL RDW 13 (10-15) % Plt Count 267 (150-450) 10^3/uL MPV 7.3 L (7.4-10.4) fL Neut % (Auto) 56.0 % Lymph % (Auto) 33.5 % [place] % (Auto) 6.6 % Eos % (Auto) 3.3 % Baso % (Auto) 0.6 % Absolute Neuts (auto) 3.7 (1.5-7.7) 10^3/ul Absolute Lymphs (auto) 2.2 (1.0-4.8) 10^3/ul Absolute Monos (auto) 0.4 (0-0.8) 10^3/ul Absolute Eos (auto) 0.2 (0-0.6) 10^3/ul Absolute Basos (auto) 0.0 (0-0.2) 10^3/ul Absolute Nucleated RBC 0.0 10^3/ul Nucleated RBC % 0.0 Urine Color Yellow Urine Appearance Clear Urine pH 5.0 (5-9) Ur Specific [place] 1.010 (1.010-1.030) Urine Protein Negative (Negative) Urine Ketones Negative (Negative) Urine Blood 3+ A (Negative) Urine Nitrate Negative (Negative) Urine Bilirubin Negative (Negative) Urine Urobilinogen Negative (Negative) Ur Leukocyte Esterase Negative (Negative) Urine WBC (Auto) Absent (Absent) Urine RBC (Auto) Trace(0-2/hpf) (Absent) Ur Squamous Epith Cells Present A (Absent) Urine Bacteria Absent (Absent) Urine Glucose Negative (Negative) Result Diagrams: 03/09/19 23:51 03/09/19 23:51 Lab Statement: Any lab studies that have been ordered have been reviewed, and results considered in the medical decision making process. Re-Evaluation - Re-Evaluation First Eval Re-Evaluation Time: 01:35 Change: Unchanged Comment: We discussed Dr. Husain's recommendation. Abdominal Pain Fem Course/Dx - Course Course Of Treatment: Pt is a 48 y/o F post-appendectomy 2 weeks ago with cc of increasing RLQ pain for the last week despite benign repeat Abd/Pel CT five days ago accompanied by bloating that has resolved, mild fever, chills, and decreased appetite. Upon physical exam, the pt exhibits RLQ tenderness without peritoneal signs. Blood work reveals MPV of 7.3 and glucose of 103 but otherwise has insignificant results. UA obtained and reveals 3+ blood and presence of squamous epithelial cells. In the ED course, the pt was administered fluids, Toradol, and Roxycodone for pain. Dr. Husain, who performed the pt's appendectomy, recommends Pelvic US. The patient is a sign- out from Dr. Sudeep Buenrostro MD, to Dr. Rohit Dover MD, at change of shift at 0700 on 03/10/2019, pending Pelvic US and disposition. - Diagnoses Provider Diagnoses: Post-operative pain - Provider Notifications Discussed Care Of Patient With: Beau Husain - surgery Time Discussed With Above Provider: 01:30 Instructed by Provider To: Other - I discussed the pt's case with Dr. Husain, who suggests that the pt receive a pelvic US. Discharge ED - Sign-Out/Discharge Documenting (check all that apply): Sign-Out Patient Signing out patient TO: Rohit Dover - Patient is a sign-out to Dr. Rohit Dover MD, at 0700 on 03/10/2019, pending Pelvic US and disposition. Patient Received Moderate/Deep Sedation with Procedure: No - Discharge Plan Condition: Stable Disposition: HOME Prescriptions: Lidocaine PATCH 5%* [Lidoderm 5% Patch*] 1 patch TRANSDERM DAILY #30 patch traMADol TAB* [Ultram*] 50 mg PO Q6HR PRN #10 tab MDD 4 PRN Reason: Pain - Severe Referrals: Beau Husain MD [Medical Doctor] - Shanika Shelton MD [Medical Doctor] - Bridgette Ray, CORE DRILLER [Nurse Practitioner] - Yecenia Kaur MD [Primary Care Provider] - Additional Instructions: Please follow up with Dr. Husain within the next 3-5 days. Also, follow up with Dr. Shelton of FACILITIES ASSISTANT. After initially seeing Dr. Shelton, see if you can follow up with Bridgette Ray NP, for future F[facility]ILITIES ASSISTANT appointments. Return to the emergency department with any new or worsening symptoms. - Billing Disposition and Condition Condition: STABLE Disposition: Home - Attestation Statements Document Initiated by Nemesio: Yes Documenting Scribe: Camelia Ramon Provider For Whom Nemesio is Documenting (Include Credential): Dr. Sudeep Buenrostro MD Scribe Attestation: I, Camelia Ramon, scribed for Dr. Sudeep Buenrostro MD on 03/10/19 at 1840. Scribe Documentation Reviewed: Yes Provider Attestation: The documentation as recorded by the Camelia garcia accurately reflects the service I personally performed and the decisions made by me, Dr. Sudeep Buenrostro MD Status of Scribe Document: Viewed
[2019-03-10] MEDS ORDERED: oxyCODONE TAB* 5 MG TAB PO ONE (01:22)
--- NOTE | 2019-03-10 07:29 | ED ---
Progress - Progress Note Progress Note: Pt is a signout from Dr. Buenrostro at 0700 on 03/10/19 pending US transvaginal. - Results/Orders Results/Orders: Transvaginal US shows: 1. A complex cyst in the left ovary, with solid components, measures up to 3.9 x 3.5 x 3.1 cm (previously 2.9 x 1.8 x 2.3 cm). Further evaluation by contrast enhanced pelvic MRI is recommended. 2. Bilateral complicated cysts as above. There is probably a separate hemorrhagic ovarian cyst on the left with internal reticulations as above. 3. Complex fluid collection in the appendectomy site measures 5.4 x 3.2 x 3.7 cm. 4. Trace free fluid along the right adnexa. 5. No evidence of ovarian torsion. ED physician has reviewed this report. CT a/p shows: 1. At the level of the appendectomy resection bed there is a 3.1 x 2.4 x 4.2 cm heterogeneous fluid collection concerning for abscess in the appropriate clinical context. The collection is mildly increased in size compared with the March 05, 2019 exam. 2. 3.2 cm follicular cyst of the LEFT ovary corresponding with the ultrasound finding from March 10, 2019. ED physician has reviewed this report. Re-Evaluation - Re-Evaluation First Eval Re-Evaluation Time: 08:11 Change: Unchanged Comment: Pt has exquisite tenderness in the RLQ. 2nd re-eval Re-Evaluation Time: 09:55 Change: Unchanged Comment: Pt vomiting. Surgery in to see her. Course/Dx - Course Course Of Treatment: Pt is a signout from Dr. Buenrostro at 0700 on 03/10/19 pending US transvaginal. Pt has exquisite tenderness in the RLQ as of 08. [address] Mishra about the pts results. He will be coming to evaluate the pt. Transvaginal US shows: 1. A complex cyst in the left ovary, with solid components, measures up to 3.9 x 3.5 x 3.1 cm (previously 2.9 x 1.8 x 2.3 cm). Further evaluation by contrast enhanced pelvic MRI is recommended. 2. Bilateral complicated cysts as above. There is probably a separate hemorrhagic ovarian cyst on the left with internal reticulations as above. 3. Complex fluid collection in the appendectomy site measures 5.4 x 3.2 x 3.7 cm. 4. Trace free fluid along the right adnexa. 5. No evidence of ovarian torsion. Re-evaluation at 0955, the pt is vomiting. Surgery is in to see her. CT a/p shows: 1. At the level of the appendectomy resection bed there is a 3.1 x 2.4 x 4.2 cm heterogeneous fluid collection concerning for abscess in the appropriate clinical context. The collection is mildly increased in size compared with the March 05, 2019 exam. 2. 3.2 cm follicular cyst of the LEFT ovary corresponding with the ultrasound finding from March 10, 2019. She will be d/c'ed with dx of post-operative pain. She is instructed to follow up with Dr. Husain in 3-5 days. She is stable and agreeable with this plan. - Diagnoses Provider Diagnoses: Post-operative pain Discharge ED - Sign-Out/Discharge Documenting (check all that apply): Patient Departure, Receiving Sign-Out Receiving patient FROM: Sudeep Buenrostro Patient Received Moderate/Deep Sedation with Procedure: No - Discharge Plan Condition: Stable Disposition: HOME Referrals: Yecenia Kaur MD [Primary Care Provider] - Beau Husain MD [Medical Doctor] - Additional Instructions: Please follow up with Dr. Husain within the next 3-5 days. Return to the emergency department with any new or worsening symptoms. - Attestation Statements Document Initiated by Scribe: Yes Documenting Scribe: Gaby Alex Provider For Whom Scribe is Documenting (Include Credential): Rohit Dover MD. Scribe Attestation: Gaby Hay, scribed for Rohit Dover MD. on 03/10/19 at 1309. Status of Scribe Document: Ready Consult Consult: [id number] Mishra about the pts results. He will be coming to evaluate the pt.
[2019-03-10] MEDS ORDERED: Acetaminophen TAB* 325 MG PO ONE (08:22)
[2019-03-10] MEDS ORDERED: Iohexol 300* (CONTRAST) 10 ML SDV IV ONE (09:24)
[2019-03-10] MEDS ORDERED: Ondansetron INJ* 2 MG/ML VIAL IV ONE (09:42)
[2019-03-10] MEDS ORDERED: Ondansetron INJ* 2 MG/ML VIAL ONE (09:43)
[2019-03-10] MEDS ORDERED: Lidocaine PATCH 5%* 1 PATCH TRANSDERM ONE (13:25)
[2019-03-10] MEDS ORDERED: Lidocaine PATCH 5%* 1 PATCH ONE (13:29)
[2019-03-10 13:32] VITALS: BP 129/52
--- NOTE | 2019-03-10 16:28 | CONS ---
CC: [facility], Attn Dr. Husain * CONSULTATION REPORT: DATE OF CONSULT: 03/10/19 - EMERGENCY DEPT EMERGENCY ROOM PATTERN CHART WRITER: Dr. Rohit Dover, referring physician. REASON FOR CONSULTATION: Right lower quadrant abdominal pain. HISTORY OF PRESENT ILLNESS: Ya Cornejo is a pleasant 48-year-old woman known to the surgical service, who underwent a laparoscopic appendectomy for acute appendicitis on 02/24/[address] Husain and was discharged to home later that same day. She had presented with a history of some epigastric discomfort with pain that became localized in the right lower quadrant and had a mild elevation of her white blood cell count at that time. A CT scan showed findings consistent with acute early appendicitis. She underwent an uneventful laparoscopic appendectomy later on the day of admission and was discharged home from the emergency room that evening. She had been doing well; however, still having some lower abdominal discomfort and saw Dr. Husain in the office last week. Laboratory workup was not done, but she was noted to be afebrile. She had had no nausea or vomiting. Her bowels have been working, but her pain was persistent in her right lower quadrant. She has a known history of bilateral ovarian cysts, it was not certain if this was similar to that; however, Dr. Husain did perform a CT scan that was done on 03/05/19. I reviewed these images and this showed a heterogeneous area of fluid in the right lower quadrant measuring approximately 2 cm x 4 cm without surrounding inflammation, air or free intraabdominal fluid. She had bilateral ovarian cysts that have been present. At that time, since she was having no fevers, this was not felt to be an abscess and she was continued to be observed. Over the weekend, she developed some worsening right lower quadrant abdominal pain, although she remained afebrile. The bowels had been working. She had been passing flatus. She had no pain into her back and she has had no difficulty urinating. Her appetite has been reasonable and she has been tolerating a regular diet. She had been taking nonsteroidals for pain medicine. In the emergency room today, she was noted to be afebrile with stable vital signs and a heart rate in the 60s and 70s. Once again, she was noted to have some right lower quadrant abdominal pain without mass or peritoneal irritation. Her white blood cell count was 6.6 without shift. Electrolytes, BUN, and creatinine as well as C-reactive protein and liver transaminases were all unremarkable. She underwent another CT scan of the abdomen and pelvis. I did review these studies with our radiologist as well as with Dr. Husain. This once again shows an area of about 3 cm x 4.2 cm of heterogeneous fluid collection, possibly concerning for abscess in the appropriate clinical context. This may be slightly increase in size from the study done on 03/05/19. Also noted is a 3.2 cm left ovarian cyst. In addition, she underwent a transvaginal ultrasound today which showed a complex cyst in left ovary. The right ovary measured 3.7 cm x 2 cm also a complicated cyst with some internal debris. There was no evidence of torsion or vascular compromise. Once again, the fluid collection was noted at the appendectomy site. PAST MEDICAL HISTORY: Unremarkable. PAST SURGICAL HISTORY: Laparoscopic appendectomy as per above. ALLERGIES: She is allergic to LATEX, OMEPRAZOLE, PEANUT OIL, AND PEANUTS. She has no known drug allergies. SOCIAL HISTORY: She does not smoke or drink. She is single, lives with a partner. 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 PHYSICAL EXAM: Temperature 97.2, pulse 68, blood pressure 129/52. In general, well-developed, well-nourished female, appears to be in no apparent distress. She was quite alert and oriented and appropriate. Lungs were clear to auscultation with normal respiratory effort. Heart was with regular rate and rhythm without murmurs, rubs, or gallops. Abdomen was soft, nondistended. She had no active bowel sounds throughout. She has well-healed laparoscopic incisions at the umbilicus in the left lower abdomen and suprapubic area. There was no distension. Bowel sounds were normal throughout. She has some mild tenderness in the right lower quadrant without mass. There was no rebound or peritoneal irritation, although she has tenderness on deeper palpation with some voluntary guarding. IMPRESSION: Right lower quadrant abdominal pain after laparoscopic appendectomy 2 weeks ago. Laboratory workup has been unremarkable. She had 2 CT scans in the last week that have showed a fluid collection in the right lower quadrant but not particularly consistent with an abscess, i.e., not a thickened wall or jose- fluid inflammation. There were no other acute findings and she has known bilateral ovarian cysts which appeared to be unchanged. I have discussed these findings with Dr. Husain as well as the patient. Dr. Husain did see the patient as well with me in the emergency room after the CT scan was done. At this point, discussion was possibility of aspiration but; however, this is unlikely to be infected with a normal white count and normal CRP and her physical exam and clinical findings and the risks may outweigh the benefits at this point. There is certainly possibility that ovarian cysts are causing discomfort and this is something that should be evaluated. After our discussion, she will be discharged home from the emergency room. We will not start antibiotics at this time, but follow up in the office in the next week. She will make this appointment. In addition, it was recommended she follow up with a project landscape architect for evaluation of her ovarian cyst. She was instructed to call sooner or present back to the emergency room if she develops fevers, shakes, chills, severe abdominal pain, or worsening symptoms or have other questions or concerns. All the above was also discussed with Dr. Dover. [id number]/[facility] #: [id number] TONY
[2019-03-10] MEDS ORDERED: Lidocaine Patch REMOVE* 1 NOTE MISC SCH (21:00)
== END 2019-03-10 13:33 | disposition home or self-care (01) ==
LOC: ED 19:48
DX: G89.18 Other acute postprocedural pain (principal); R50.9 Fever, unspecified; J45.909 Unspecified asthma, uncomplicated; R10.31 Right lower quadrant pain
CPT/HCPCS: 36415; 74177; 76830; 80053; 81003; 81015; 83690; 85025; 86140; 96361; 96374; 96375; 99283; A9270-GY; J1885; J2405; Q9967

== ENCOUNTER 2019-10-07 06:39 | Emergency (ER) | payer BC ==
--- NOTE | 2019-10-07 07:02 | ED ---
HPI Chest Pain - HPI Summary HPI Summary: Pt. is a 48 y.o female who presents to the ER for chest pain and palpitations x 2-3 days. Pt. notes a "fluttering" sensation and feels like her heart is skipping a beat. She denies SOB, fever, cough, abd. pain, N/V. Pt. notes hx of asthma and feels her asthma has been flaring up due to allergies. Sxs are moderate in severity. No current modifying factors. Pt denies drug, ETOH and smoking use. Note she drinks green tea. Denies hx of HTN, HLD, CA. Notes her father had bypass in his 70's otherwise denies family CAD hx. - History of Current Complaint Time Seen by Provider: 10/07/19 06:59 Hx Last Menstrual Period: 2 weeks ago Pain Intensity: 2 - Additional Pertinent History Primary Care Physician: [id number] - Allergy/Home Medications Allergies/Adverse Reactions: Allergies Allergy/AdvReac Type Severity Reaction Status Date / Time latex Allergy Rash Verified 10/07/19 06:59 omeprazole [From Prilosec] Allergy Swelling Verified 10/07/19 06:59 peanut Allergy Hives/Diff. Verified 10/07/19 06:59 Breathing/I tching peanut oil Allergy Hives/Diff. Verified 10/07/19 06:59 Breathing/I tching Home Medications: Home Medications Albuterol HFA INHALER* [Ventolin HFA Inhaler*] 2 puff INH Q4H PRN 10/07/19 [ History Confirmed 10/07/19] Fluticasone HFA 44 mcg(NF) [Flovent Hfa 44 mcg(NF)] 2 puff INH BID 10/07/19 [ History Confirmed 10/07/19] PMH/Surg Hx/FS Hx/Imm Hx Previously Healthy: Yes Endocrine/Hematology History: Denies: Hx Diabetes, Hx Thyroid Disease Cardiovascular History: Denies: Hx Hypertension Respiratory History: Reports: Hx Asthma Denies: Hx Chronic Obstructive Pulmonary Disease (COPD) GI History: Denies: Hx Ulcer History: Denies: Hx Renal Disease Musculoskeletal History: Reports: Hx Back Problems - Small fracture in back, Other Musculoskeletal History - spondylothesis Denies: Hx Scoliosis Sensory History: Reports: Hx Contacts or Glasses - reading glasses Denies: Hx Hearing Aid Opthamlomology History: Reports: Hx Contacts or Glasses - reading glasses Neurological History: Reports: Hx Headaches, Hx Migraine Denies: Other Neuro Impairments/Disorders Psychiatric History: Reports: Hx Depression - Cancer History Hx Chemotherapy: No Hx Radiation Therapy: No - Surgical History Surgery Procedure, Year, and Place: APPENDECTOMY Infectious Disease History: No Infectious Disease History: Denies: Hx Hepatitis, Hx Human Immunodeficiency Virus (HIV), Traveled Outside the [place] in Last 30 Days - Family History Known Family History: Positive: Cardiac Disease - father - [place] >age 70, Respiratory Disease, Other - CA, Non-Contributory - Social History Occupation: Employed Full-time Lives: With Family Alcohol Use: Rare Hx Substance Use: No Substance Use Type: Reports: None Hx Tobacco Use: No Smoking Status (MU): Never Smoked Tobacco Review of Systems Constitutional: Negative Negative: Fever, Chills ENT: Negative Positive: Palpitations, Chest Pain Respiratory: Negative Negative: Shortness Of Breath, Cough Gastrointestinal: Negative Negative: Abdominal Pain, Vomiting, Diarrhea, Nausea Musculoskeletal: Negative Skin: Negative Neurological/Mental Status: Negative All Other Systems Reviewed And Are Negative: Yes Physical Exam Triage Information Reviewed: Yes Vital Signs On Initial Exam: Initial Vitals Temp Pulse Resp BP Pulse Ox 97.6 F 69 15 127/63 99 10/07/19 06:57 10/07/19 06:57 10/07/19 06:57 10/07/19 06:57 10/07/19 06:57 Vital Signs Reviewed: Yes Appearance: Positive: Well-Appearing - Pt. sitting up in bed in NAD. Skin: Positive: Warm, Dry Head/Face: Positive: Normal Head/Face Inspection Eyes: Positive: Normal, EOMI Neck: Positive: Supple Respiratory/Lung Sounds: Positive: Clear to Auscultation, Breath Sounds Present. Negative: Rales, Wheezes Cardiovascular: Positive: Normal, RRR Musculoskeletal: Positive: Normal, Strength/ROM Intact. Negative: Edema Left, Edema Right Neurological: Positive: Normal, CN Intact II-III Psychiatric: Positive: Affect/Mood Appropriate Procedures - Sedation Patient Received Moderate/Deep Sedation with Procedure: No Diagnostics - Vital Signs Vital Signs Temp Pulse Resp BP Pulse Ox 10/07/19 06:57 97.6 F 69 15 127/63 99 - Laboratory Result Diagrams: 10/07/19 07:14 10/07/19 07:14 Lab Statement: Any lab studies that have been ordered have been reviewed, and results considered in the medical decision making process. Chest Pain Course/Dx - Course Course Of Treatment: Pt. with chest pain/palpitations x 2-3 days. Afebrile with stable VS. ECG done at 0647 shows a sinus rhythm of 69bpm, normal axis, appropriate intervals, no ST STEMI. CXR negative for acute findings per radiology. Labs unremarkable. HEART score is 1 making pt. very low risk. Results discussed. Pt. comfortable with dc home to . with pcp and possible get holter monitoring. Will return to er if sxs change or worsen. - Chest Pain Differential Diagnosis/HQI/PQRI: Acute ME, ACS, Chest Wall, GI Disease, Lower Respiratory Infection - Diagnoses Provider Diagnoses: Chest pain, Palpitations - Critical Care Time Critical Care Statement: Critical care time is provided exclusive of any time spent performing procedures. Discharge ED - Sign-Out/Discharge Documenting (check all that apply): Patient Departure - Discharge Plan Condition: Good Disposition: HOME Patient Education Materials: Chest Pain (ED), Heart Palpitations (ED) Referrals: Yecenia Kaur MD [Primary Care Provider] - Additional Instructions: Call PCP today to schedule a follow up appointment within one week Avoid caffeine use Increase fluids and rest Return to ER if symptoms change or worsen - Billing Disposition and Condition Condition: GOOD Disposition: Home
[2019-10-07 07:28] LABS: ABS Eosinophils 0.1 10^3/ul (0-0.6); ABS Lymphocytes 1.6 10^3/ul (1.0-4.8); ABS Monocytes 0.3 10^3/ul (0-0.8); ABS Neutrophils 2.5 10^3/ul (1.5-7.7); Eosinophil % 2.4 %; Hematocrit 41 % (35-47); Hemoglobin 14.3 g/dL (12.0-16.0); Lymphocyte % 35.2 %; Mean Corpuscular HGB Conc 35 g/dL (31-36); Mean Corpuscular Hemoglobin 32 pg (27-31); Mean Corpuscular Volume 91 fL (80-97); Mean Platelet Volume 7.6 fL (7.4-10.4); Platelet Count 212 10^3/uL (150-450); Red Blood Count 4.48 10^6 /uL (3.70-4.87); Red Cell Distribution Width 13 % (10-15); White Blood Count 4.5 10^3/uL (3.5-10.8)
[2019-10-07 07:48] LABS: Albumin 4.4 g/dL (3.2-5.2); Albumin/Globulin Ratio 1.6 (1-3); BUN/Creatinine Ratio 17.4 (8-20); Calcium 9.5 mg/dL (8.6-10.3); EGFR African American 79.5 (>60); EGFR Non-African American 65.7 (>60); Globulin 2.8 g/dL (2-4); Potassium 3.7 mmol/L (3.5-5.0); Total Bilirubin 0.4 mg/dL (0.2-1.0); Total Protein 7.2 g/dL (6.4-8.9)
[2019-10-07 08:31] LABS: TSH (Thyroid Stimulating Horm) 3.18 mcIU/mL (0.34-5.60)
[2019-10-07 08:59] VITALS: BP 117/71
[2019-10-09 12:18] LABS: Free T4 0.81 ng/dL (0.61-1.12)
== END 2019-10-07 08:58 | disposition home or self-care (01) ==
LOC: ED 06:39
DX: R07.9 Chest pain, unspecified (principal); R00.2 Palpitations; R51 Headache; R42 Dizziness and giddiness; F32.9 Major depressive disorder, single episode, unspecified; Z79.890 Hormone replacement therapy; Z91.040 Latex allergy status
CPT/HCPCS: 36415; 71045; 80053; 83605; 84439; 84443; 84484; 85025; 93005; 99283

== ENCOUNTER 2023-12-30 14:50 | Inpatient (IN) ==
[2023-12-30 16:08] LABS: ABS Eosinophils 0.1 10^3/uL (0.0-0.5); ABS Lymphocytes 0.9 10^3/uL (1.0-4.8); ABS Monocytes 0.2 10^3/uL (0.0-0.9); ABS Neutrophils 2.3 10^3/uL (1.5-7.6); Eosinophil % 1.7 %; Hemoglobin 9.5 g/dL (11.5-14.3); Lymphocyte % 24.5 %; Mean Corpuscular Hgb Conc 33.9 g/dL (31-36); Mean Corpuscular Volume 103.4 fL (80-97); Mean Platelet Volume 7.5 fL (7.5-11.2); Platelet Count 126 10^3/uL (150-450); Red Cell Distribution Width 15.7 % (12-17); White Blood Count 3.5 10^3/uL (3.8-11.8)
[2023-12-30 16:20] LABS: Urine Appearance Clear; Urine Bilirubin Negative (Negative); Urine Blood Trace (Negative); Urine Color Colorless; Urine Glucose Negative (Negative); Urine Ketones Negative (Negative); Urine Nitrite Negative (Negative); Urine Protein Negative (Negative); Urine Specific Gravity 1.007 (1.002-1.030); Urine Urobilinogen Negative (Negative); Urine pH 5.5 (5.0-8.0)
[2023-12-30 16:34] LABS: Urine Benzodiazepine Screen None Detected (None Detect); Urine Cannabinoids Screen Presumptive Positive (None Detect); Urine Opiates Screen None Detected (None Detect)
[2023-12-30 16:47] LABS: ALT 11 U/L (7-52); AST 15 U/L (13-39); Acetaminophen < 15 mcg/mL; Albumin 4.5 g/dL (3.2-5.2); Alcohol, S < 13 mg/dL (<13); Alkaline Phosphatase 83 U/L (35-149); Anion Gap 9 mmol/L (2-16); Blood Urea Nitrogen 15 mg/dL (6-24); CO2 Carbon Dioxide 26 mmol/L (22-32); Calcium 9.4 mg/dL (8.6-10.3); Chloride 103 mmol/L (101-111); Globulin 2.3 g/dL (2-4); Glucose 124 mg/dL (70-100); Potassium 3.9 mmol/L (3.5-5.0); Salicylate < 2.50 mg/dL (<30); Sodium 138 mmol/L (135-145); Total Bilirubin 0.3 mg/dL (0.2-1.0); Total Protein 6.8 g/dL (6.4-8.9); eGFR CKD-EPI 89.2 (>60)
[2023-12-30 17:01] LABS: TSH Ultra Thyroid Stim Horm 1.03 mcIU/mL (0.34-5.60)
[2023-12-30] MEDS ORDERED: Al Hydrox/Mg Hydrox/Simet LIQ 30 ML UDC PO PRN (19:16)
[2023-12-31 08:57] LABS: HDL Cholesterol 64.6 mg/dL
[2023-12-31] MEDS: Vitamin THERAPEUTIC TAB PO SCH (09:02)
[2024-01-02] MEDS: buPROPion SR 100 mg TAB.SR PO SCH (08:23)
[2024-01-02] MEDS: Polyethylene Glycol 3350 17 GM PACKET PO PRN (11:59)
[2024-01-04 11:27] VITALS: BP 99/49
== END 2024-01-04 12:15 | disposition home or self-care (01) | DRG 754 ==
LOC: ED 14:50 → EDHOLD 18:12 → BSU 12-31 14:45
PROVIDERS: ADMIT Psychiatry & Neurology Psychiatry; ATTEND Student in an Organized Health Care Education/Training Program